=== PATIENT | female | born 1990 | race Caucasian/White ===

== ENCOUNTER 2021-01-30 16:52 | Emergency (ER) | payer OTHER ==
[~2021-01-30] VITALS: Ht 170.2 cm; Wt 90.7 kg
[2021-01-30 17:29] LABS: BASOPHILS % (AUTO) 0.8 % (0.0-2.0); EOSINOPHILS % (AUTO) 1.5 % (0.0-6.0); HEMATOCRIT 41 % (33-45); LYMPHOCYTES # (AUTO) 2.2 K/uL (0.8-4.8); LYMPHOCYTES % (AUTO) 45.4 % (20.0-44.0); MEAN CORPUSCULAR HGB CONC 34 g/dl (31.0-36.0); MEAN CORPUSCULAR VOLUME 92 fL (82-100); MONOCYTES # (AUTO) 0.2 K/uL (0.1-1.30); MONOCYTES % (AUTO) 4.6 % (2.0-12.0); NEUTROPHILS # (AUTO) 2.3 K/uL (1.8-8.9); NEUTROPHILS % (AUTO) 47.7 % (43.0-81.0); PLATELET COUNT (AUTO) 332 K/uL (150-450); WHITE BLOOD COUNT (AUTO) 4.9 K/uL (4.3-11.0)
[2021-01-30] MEDS ORDERED: IV NS 0.9% 1,000 ML BAG IV ONE (17:30)
--- NOTE | 2021-01-30 17:31 | NUR ---
BIBS FROM HOME TO ER BED 12. AAOX4. NOT IN RESP DISTRESS. AMBULATORY. CAME IN FOR GENERALIZED WEAKNESS FOR THE PAST 3 DAYS. PER PT, SHE PASSED OUT 3 DAYS AGO AND SINCE THEN SHE HAS BEEN FEELING WEAK. PT DENIES ANY TRAUMA OBTAINED FROM THE PASSING OUT EPISODE. NO HT. NO NEURO DEFICIT NOTED WELL. PROVIDER WAS AT THE BEDSIDE FOR EVAL. ORDERES RECEIVED, NOTED AND CARRIED OUT. IV LINE ESTABLISHED ON R AC 20G, BLOOD DRAWN AND GIVEN TO PHLEB.
[2021-01-30 17:36] LABS: CALCIUM, SERUM 8.6 mg/dL (8.5-10.1); CREATININE 0.5 mg/dL (0.6-1.3); POTASSIUM 3.3 mmol/L (3.5-5.1)
[2021-01-30] MEDS ORDERED: POTASSIUM CHLORIDE 20 MEQ TAB.PRT.SR PO ONE ×2 (18:00→18:29)
[2021-01-30 18:33] LABS: BILIRUBIN,URINE NEGATIVE (NEGATIVE); COLOR,URINE YELLOW (YELLOW); LEUKOCYTE ESTERASE ,URINE NEGATIVE (NEGATIVE); NITRITE, URINE NEGATIVE (NEGATIVE); PH,URINE 7.5 (5.0-8.0); PROTEIN,URINE NEGATIVE (NEGATIVE); UGLUCOSE NEGATIVE (NEGATIVE); UROBILINOGEN,URINE 0.2 EU/dL (0.2)
--- NOTE | 2021-01-30 19:03 | NUR ---
Patient discharged to home in stable condition. Written and verbal after care instructions given. Patient verbalizes understanding of instruction. Pt ambulatory with a steady gait IV removed. Catheter intact and site benign. Pressure and 4x4 applied to site. No bleeding noted.
[2021-01-30 19:07] VITALS: BP 128/72
== END 2021-01-30 19:07 | disposition home or self-care (01) ==
LOC: ER 17:02
DX: R53.1 Weakness (principal); R53.81 Other malaise; R53.83 Other fatigue; E87.6 Hypokalemia; F17.210 Nicotine dependence, cigarettes, uncomplicated; Z60.2 Problems related to living alone
CPT/HCPCS: 36415; 80048; 81003; 84703; 85025; 93005; 96360; 99284; 99406; J7030